=== PATIENT | male | born 1990 | race Caucasian/White ===

== ENCOUNTER 2022-07-24 22:10 | Emergency (ER) | payer OTHER ==
[2022-07-24] MEDS ORDERED: Lidocaine 1% 10 ML MDV ONE (22:31)
[2022-07-24] MEDS ORDERED: Lidocaine 1% 10 ML MDV INJECT ONE (22:58)
== END 2022-07-24 23:05 | disposition home or self-care (01) ==
LOC: JD.ED 22:10
DX: S61.011A Laceration without foreign body of right thumb without damage to nail, initial encounter (principal); W23.0XXA Caught, crushed, jammed, or pinched between moving objects, initial encounter
CPT/HCPCS: 12001; 99282; J3490